=== PATIENT | male | born 1945 | race Caucasian/White ===

== ENCOUNTER → 2018-10-15 | Outpatient (CLI) | payer MEDICARE ==
[~2018-10-15] MED LIST: ASPI325EC PO; GLYB2.5 PO; Humalog100 UNIT/3 SQ; INSDET100 SC; INSUASPI SC; LISI20 PO; METF850 PO; PRAV40 PO; ZESTRIL40 MG PO
== END | disposition home or self-care (01) ==
LOC: PLD 11:05 → LAB SHORT 11:05
DX: D04.61 Carcinoma in situ of skin of right upper limb, including shoulder (principal)
CPT/HCPCS: 88305